=== PATIENT | female | born 1975 | race Two or more races ===

== ENCOUNTER 2018-06-18 01:05 | Emergency (ER) | payer MEDICAID ==
[~2018-06-18] VITALS: Ht 170.2 cm; Wt 37.2 kg
[2018-06-18 01:18] VITALS: BP 132/74
[2018-06-18] MEDS ORDERED: LIDOcaine 1% 30ml preserv. free vial IJ ONE (01:45)
[2018-06-18] MEDS ORDERED: TETanus/Pertussis (Acell)/Diphther VAC/PF (Tdap-Adult) 0.5ml syringe IM ONE (01:50)
[2018-06-18] MEDS ORDERED: ondansetron 4mg rapidly disintigrating tab PO ONE (01:55)
== END 2018-06-18 03:51 | disposition home or self-care (01) ==
LOC: ER 01:06
DX: S01.01XA Laceration without foreign body of scalp, initial encounter (principal); F12.90 Cannabis use, unspecified, uncomplicated; W18.39XA Other fall on same level, initial encounter; Y93.89 Activity, other specified; Y92.091 Bathroom in other non-institutional residence as the place of occurrence of the external cause; Y99.8 Other external cause status
CPT/HCPCS: 12001; 70450; 90471; 90715; 99284; J3490

== ENCOUNTER 2021-06-22 08:52 | Emergency (ER) | payer MEDICAID, OTHER ==
[~2021-06-22] VITALS: Ht 170.2 cm; Wt 85.9 kg
[2021-06-22 09:06] VITALS: BP 114/68
== END 2021-06-22 11:04 | disposition home or self-care (01) ==
LOC: ER 08:53
DX: S13.4XXA Sprain of ligaments of cervical spine, initial encounter (principal); S39.012A Strain of muscle, fascia and tendon of lower back, initial encounter; S16.1XXA Strain of muscle, fascia and tendon at neck level, initial encounter; F12.90 Cannabis use, unspecified, uncomplicated; Z72.89 Other problems related to lifestyle; V89.2XXA Person injured in unspecified motor-vehicle accident, traffic, initial encounter; Y93.89 Activity, other specified; Y92.89 Other specified places as the place of occurrence of the external cause; Y99.8 Other external cause status
CPT/HCPCS: 72125; 72131; 99284